=== PATIENT | female | born 1965 | race Caucasian/White ===

== ENCOUNTER → 2018-04-07 | Outpatient (CLI) | payer BC | END | disposition home or self-care (01) | LOC: LAB 07:30 → LAB SHORT 07:30 | DX: L08.0 Pyoderma (principal) | CPT/HCPCS: 87070; 87077; 87147; 87186; 87205 ==

== ENCOUNTER → 2021-07-30 | Outpatient (CLI) | payer BC | END | disposition home or self-care (01) | LOC: PLD 11:07 → LAB SHORT 11:07 | DX: D48.5 Neoplasm of uncertain behavior of skin (principal) | CPT/HCPCS: 88305 ==

== ENCOUNTER 2022-05-28 07:50 | Day surgery (SDC) | payer BC ==
[~2022-05-28] VITALS: Ht 154.9 cm; Wt 103.5 kg
[~2022-05-28 07:50] MED LIST: Adipex-P37.5 MG; PROG100 PO
--- NOTE | 2022-05-28 09:06 | NUR ---
Patient up to Ambulate independently. Gait steady. Surgical site prepped with 2% Chlorhexidine cloth wipe. History, Chart, Medications and Allergies reviewed before start of procedure. Patient confirms NPO status and agrees with scheduled surgery. Pre-Op teaching done. Pt verbalizes understanding.
--- NOTE | 2022-05-28 17:16 | NUR ---
DISCHARGE SUMMARY PATIENT EXTENDED RECOVERY ADMIT TO UNIT FROM PACU AT 1230. ARRIVED TO ROOM ON GURNEY ALERT AND ORIENTED. SLIDE TRANSFERRED TO BED. VSS. TOLERATED WATER AND SNACKS. ABLE TO GET UP AND VOID. AMBULATED IN HALLS. ABD LAP SITES X4 C/D/I WITH DERMABOND. SCANT SPOTTING TO PERIPAD. REPORTED PAIN TOLERABLE 4/10. DECLINED PAIN MEDS. NO NAUSEA. DISCHARGE ORDER IN CHART. DISCHARGE EDUCATION GIVEN ON NEW MEDS, INCISION CARE, ACTIVITY, AND FOLLOW UP APPTS WITH DR JOHNSON. IV DC'D WNL. PATIENT LEFT UNIT AT 1630 VIA WHEELCHAIR WITH FOR HOME.
--- NOTE | 2022-05-29 08:34 | NUR ---
05/29/22 0834 Connie Tolliver VERIFICATIONS: EDIT CHART.
== END 2022-05-28 17:38 | disposition home or self-care (01) ==
LOC: ORSCMMR 07:50 → SURS 13:00 → ORSCMMR 17:38
PROVIDERS: Obstetrics & Gynecology
PROC: 0UT7FZZ Resection of Bilateral Fallopian Tubes, Via Natural or Artificial Opening With Percutaneous Endoscopic Assistance (ICD-10-PCS; principal; 2022-05-28 09:30)
PROC: 0UT2FZZ Resection of Bilateral Ovaries, Via Natural or Artificial Opening With Percutaneous Endoscopic Assistance (ICD-10-PCS; principal; 2022-05-28 09:30)
PROC: 0UT9FZZ Resection of Uterus, Via Natural or Artificial Opening With Percutaneous Endoscopic Assistance (ICD-10-PCS; principal; 2022-05-28 09:30)
PROC: 8E0W4CZ Robotic Assisted Procedure of Trunk Region, Percutaneous Endoscopic Approach (ICD-10-PCS; principal; 2022-05-28 09:30)
DX: N95.0 Postmenopausal bleeding (principal); N85.00 Endometrial hyperplasia, unspecified; E28.8 Other ovarian dysfunction; N70.11 Chronic salpingitis; N83.292 Other ovarian cyst, left side; N83.291 Other ovarian cyst, right side; E66.01 Morbid (severe) obesity due to excess calories; Z68.41 Body mass index [BMI] 40.0-44.9, adult; Z79.899 Other long term (current) drug therapy
CPT/HCPCS: 58571; S2900; 36415; 86850; 86900; 86901; A9270; J1580; J1885; J2250; J2405; J2710; J2795; J3010; J7120